=== PATIENT | female | born 1965 | race Caucasian/White ===

== ENCOUNTER 2017-10-04 20:01 | Emergency (ER) | payer BC ==
[2017-10-04] MEDS ORDERED: Ketorolac 60 MG/2 ML SDV IM ONE (21:52)
[2017-10-04] MEDS ORDERED: Acetaminophen/oxyCODONE 325-5 MG Tab PO ONE (21:55)
--- NOTE | 2017-10-04 22:04 | EDM.PDOC ---
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 No fever. No hx of the same. Is permenopausal and would like her IUD out. She is concerned her pain is from ovarian cysts. Has no PHx of ovarian cysts. No GI or urinary sx's. Pain is LLQ and RLQ in her pelvis. Pain is increased with coughing/moving. Is on vacation until Wednesday here from [place] with family. Got current IUD in . Onset: Gradual Onset Date: 09/20/17 Duration: Week(s): (2), Getting Worse Location: Reports: Pelvis Quality: Reports: Ache Severity: Moderate Improves with: Reports: Medication Worsens with: Reports: Movement Context: Reports: Other (Has a Mirena IUD) Associated Symptoms: Reports: No Other Symptoms Treatments [employer] MA[employer]GER DOG TRACK: Reports: NSAIDS Uterine Pain Score (Numeric/FACES): 5 - Related Data Allergies Allergy/AdvReac Type Severity Reaction Status Date / Time erythromycin base Allergy Nausea Verified 10/04/17 21:19 Home Meds: Home Meds *[place] 1 unit IUTERINE ASDIRECTED 10/04/17 [History] Citalopram [Citalopram HBr] 40 mg PO DAILY 10/04/17 [History] buPROPion [Wellbutrin SR] 150 mg PO DAILY 10/04/17 [History] 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: Psychiatric History: Reports: Depression - Infectious Disease History Infectious Disease History: Reports: Chicken Pox Social & Family History - Tobacco Use Smoking Status *Q: Never Smoker Second Hand Smoke Exposure: No - Caffeine Use Caffeine Use: Reports: Coffee, Soda - Alcohol Use Days Per Week of Alcohol Use: 0 - Recreational Drug Use Recreational Drug Use: No ED ROS GENERAL - Review of Systems Review Of Systems: See Below Constitutional: Reports: No Symptoms HEENT: Reports: No Symptoms Respiratory: Reports: No Symptoms Cardiovascular: Reports: No Symptoms GI/Abdominal: Reports: No Symptoms : Reports: Pain (in R and L lower quadrants of her pelvis), Other (light vaginal bleeding.) Skin: Reports: No Symptoms ED EXAM, GI/ABD - Physical Exam Exam: See Below Exam Limited By: No Limitations General Appearance: Alert, WD/WN, No Apparent Distress Eyes: Bilateral: Normal Appearance Ears: Normal External Exam, Normal Canal, Hearing Grossly Normal, Normal TMs Nose: Normal Inspection, Normal Mucosa, No Blood Throat/Mouth: Normal Inspection, Normal Lips, Normal Oropharynx, Normal Voice, No Airway Compromise Head: Atraumatic, Normocephalic Neck: Normal Inspection, Supple Respiratory/Chest: No Respiratory Distress, Lungs Clear, Normal Breath Sounds, No Accessory Muscle Use Cardiovascular: Regular Rate, Rhythm GI/Abdominal Exam: Normal Bowel Sounds, Soft, Non-Tender, No Distention. No: Abnormal Bowel Sounds (Female) Exam: Other (Tender both in left and right hemipelvis. Not tender over uterus. ) Back Exam: Normal Inspection Extremities: Normal Inspection, Normal Range of Motion, Non-Tender, No Pedal Edema Neurological: Alert, Oriented, CN II-XII Intact, Normal Cognition, No Motor/ Sensory Deficits Psychiatric: Normal Affect, Normal Mood Skin Exam: Warm, Dry, Intact, Normal Color, No Rash Lymphatic: No Adenopathy Course - Vital Signs Last Recorded V/S: Last Vital Signs Temp 37.1 C 10/04/17 21:27 Pulse 90 10/04/17 21:27 Resp 16 10/04/17 21:27 BP 149/73 H 10/04/17 21:27 Pulse Ox 94 L 10/04/17 21:27 - Orders/Labs/Meds Orders: Active Orders 24 hr Category Date Time Status CULTURE URINE [RM] Stat Lab 10/04/17 22:28 Ordered UA W/MICROSCOPIC [URIN] Stat Lab 10/04/17 22:08 Ordered Labs: Laboratory Tests 10/04/17 10/04/17 10/04/17 Range/Units 22:05 22:05 22:08 WBC 13.0 H (4.5-11.0) K/uL RBC 4.25 (3.30-5.50) M/uL Hgb 12.2 (12.0-15.0) g/dL Hct 37.9 (36.0-48.0) % MCV 89 (80-98) fL MCH 29 (27-31) pg MCHC 32 (32-36) % Plt Count 455 H (150-400) K/uL C-Reactive Protein 6.53 H (0.0-0.3) mg/dL Urine Color Yellow Urine Appearance Cloudy Urine pH 5.0 (4.5-8.0) Ur Specific [place] 1.020 (1.008-1.030) Urine Protein Negative (NEGATIVE) mg/dL Urine Glucose (UA) Normal (NEGATIVE) mg/dL Urine Ketones Negative (NEGATIVE) mg/dL Urine Occult Blood Large (NEGATIVE) Urine Nitrite Negative (NEGATIVE) Urine Bilirubin Negative (NEGATIVE) Urine Urobilinogen 1 (NORMAL) mg/dL Ur Leukocyte Esterase Large (NEGATIVE) Urine RBC Semi-packed H (0-5) Urine WBC Packed H (0-5) Ur Epithelial Cells Few Amorphous Sediment Not seen Urine Bacteria Few Urine Mucus Not seen Meds: Medications Discontinued Medications Generic Name Dose Route Start Last Admin Trade Name Freq PRN Reason Stop Dose Admin Ceftriaxone Sodium 1 gm 10/04/17 22:29 Rocephin IM 10/04/17 22:30 ONETIME ONE Ketorolac Tromethamine 60 mg 10/04/17 21:52 Toradol IM 10/04/17 21:53 ONETIME ONE Oxycodone/Acetaminophen 1 tab 10/04/17 21:55 10/04/17 21:59 Percocet 325-5 Mg PO 10/04/17 21:56 1 tab ONETIME ONE Administration Departure - Departure Time of Disposition: 22:55 Disposition: Home, Self-Care 01 Condition: Fair Clinical Impression: Pelvic pain - Discharge Information Referrals: PCP,None [Primary Care Provider] - Forms: ED Department Discharge - My Orders Last 24 Hours: My Active Orders 10/04/17 22:08 UA W/MICROSCOPIC [URIN] Stat 10/04/17 22:28 CULTURE URINE [RM] Stat - Assessment/Plan Last 24 Hours: My Active Orders 10/04/17 22:08 UA W/MICROSCOPIC [URIN] Stat 10/04/17 22:28 CULTURE URINE [RM] Stat
[2017-10-04] MEDS ORDERED: cefTRIAXone 1 GM Vial IM ONE (22:29)
== END 2017-10-04 23:12 | disposition home or self-care (01) ==
LOC: JP.ED 20:01
DX: R10.2 Pelvic and perineal pain (principal); F32.9 Major depressive disorder, single episode, unspecified; Z79.899 Other long term (current) drug therapy; Z88.1 Allergy status to other antibiotic agents
CPT/HCPCS: 36415; 81001; 85027; 86140; 87086; 96372; 99284; A9270; J0696